=== PATIENT | female | born 1970 | race Caucasian/White ===

== ENCOUNTER 2016-11-01 16:29 | Emergency (ER) | payer OTHER ==
[~2016-11-01] VITALS: Wt 65.9 kg
--- NOTE | 2016-11-01 18:42 | RADRPT ---
PROCEDURE: XR Sacrum and Coccyx. CLINICAL INDICATION: Trauma due to a fall 2 weeks ago. Sacrum and coccyx pain. TECHNIQUE: 3 views. AP, AP oblique, and lateral views of the sacrum and coccyx were performed. COMPARISON: No prior studies are available for comparison. FINDINGS: There is normal sacral and coccygeal mineralization and alignment. No fracture or subluxation is see n. The sacroiliac joints appear normal. The soft tissues are unremarkable. IMPRESSION: 1. Unremarkable images of the sacrum and coccyx. RPTAT: QQ .Byron Diego MD, MD Date Time Electronically viewed and signed by .Byron Diego MD, on 11/01/2016 18:41 .R/
[2016-11-01] MEDS ORDERED: DOCU-144 PO (19:22)
[2016-11-01] MEDS ORDERED: IBUP-1542 PO (19:22)
[2016-11-01] MEDS ORDERED: HYDR-906 PO (19:22)
--- NOTE | 2016-11-01 20:04 | ERD ---
ER Documentation Chief Complaint Date/Time DATE: 11/01/16 TIME: 20:01 Chief Complaint rectal pain while sitting and walking, no pain w bm HPI Patient is a 46-year-old female she fell 2 weeks ago she fell out of the chair and landed on her tailbone area. Apparently she developed more pain in the past 1 week. She had a history of hemorrhoidectomy 3 years ago. No fevers no chills no other complaints. No bowel or bladder incontinence no saddle anesthesia no radiation of the pain down the leg. Pain is localized in the tailbone area it is aching it is mild to moderate. ROS All systems reviewed and are negative except as per history of present illness. Medications Home Meds Active Scripts Ibuprofen* (Motrin*) 600 Mg Tab, 600 MG PO Q8, #15 TAB Prov:EMILIANA GAYTAN DO 11/01/16 Hydrocodone/Acetaminophen ([place] 5-325 Tablet) 1 Each Tablet, 1 TAB PO Q6H Y for PAIN, #12 TAB Prov:EMILIANA GAYTAN DO 11/01/16 Docusate Sodium* (Colace*) 100 Mg Capsule, 100 MG PO TID, #30 CAP Prov:EMILIANA GAYTAN DO 11/01/16 Allergies Allergies: Coded Allergies: No Known Allergy (Unverified , 11/01/16) PMhx/Soc Medical and Surgical Hx: pt denies Medical Hx, pt denies Surgical Hx Hx Alcohol Use: No Hx Tobacco Use: No Smoking Status: Never smoker Physical Exam Vitals Vital Signs Date Time Temp Pulse Resp B/P Pulse Ox O2 Delivery O2 Flow Rate FiO2 11/01/16 16:39 98.5 86 20 121/77 100 Physical Exam Const: [] Head: Atraumatic Eyes: Normal Conjunctiva ENT: Normal External Ears, Nose and Mouth. Neck: Full range of motion..~ No meningismus. Resp: Clear to auscultation bilaterally Cardio: Regular rate and rhythm, no murmurs Abd: Soft, non tender, non distended. Normal bowel sounds Skin: No petechiae or rashes Back: No midline or flank tenderness. In the sacral coccygeal area she has moderate localized tenderness to palpation, she has a small external hemorrhoid nonthrombosed. Ext: No cyanosis, or edema Neur: Awake and alert Psych: Normal Mood and Affect Results 24 hrs [facility] [address] [address] Radiology Main Line: [phone] DIAGNOSTIC IMAGING REPORT Patient: DANYELLE TRAMMELL : 1970 Age: 46 Sex: F MR #: [id number] DOS: 11/01/16 0000 Ordering MD: EMILIANA GAYTAN DO Location: [facility] Room/Bed: PROCEDURE: XR Sacrum and Coccyx. CLINICAL INDICATION: Trauma due to a fall 2 weeks ago. Sacrum and coccyx pain. TECHNIQUE: 3 views. AP, AP oblique, and lateral views of the sacrum and coccyx were performed. COMPARISON: No prior studies are available for comparison. FINDINGS: There is normal sacral and coccygeal mineralization and alignment. No fracture or subluxation is seen. The sacroiliac joints appear normal. The soft tissues are unremarkable. IMPRESSION: 1. Unremarkable images of the sacrum and coccyx. RPTAT: QQ .Byron Diego MD, MD Date Time Electronically viewed and signed by .Byron Diego MD, MD on 11/01/2016 18:41 .R/ CC: EMILIANA GAYTAN DO Procedures/MDM X-ray of the coccyx and sacrum shows no fracture so this is likely a sacral or coccygeal contusion. He also has an external hemorrhoid. Give her pain medications stool softeners. I doubt cauda equina discitis osteomyelitis broken tailbone broken coccygeal and lower herniated disc. Vital signs are stable she is well-appearing she stable for discharge and outpatient follow-up. Departure Diagnosis: Primary Impression: Coccyx pain Additional Impression: External hemorrhoid Condition: Stable Patient Instructions: Contusion, Coccyx/Sacrum EMILIANA GAYTAN DO Nov 01, 2016 20:04
== END 2016-11-01 19:29 | disposition home or self-care (01) ==
LOC: FTE 16:29
DX: S39.92XA Unspecified injury of lower back, initial encounter (principal); K64.4 Residual hemorrhoidal skin tags; W07.XXXA Fall from chair, initial encounter; Y92.9 Unspecified place or not applicable
CPT/HCPCS: 72220

== ENCOUNTER 2017-03-24 19:44 | Emergency (ER) | payer OTHER ==
[~2017-03-24] VITALS: Ht 160 cm; Wt 71.0 kg
[~2017-03-24 19:44] MED LIST: DOCU-144 PO; HYDR-906 PO; IBUP-1542 PO
[2017-03-24 19:55] VITALS: Ht 160 cm; Wt 71.0 kg
[2017-03-24] MEDS ORDERED: DIPHENHYDRAMINE 50 MG INJ IM ONE (21:30)
[2017-03-24] MEDS ORDERED: predniSONE 50 MG TAB PO ONE (21:30)
[2017-03-24] MEDS ORDERED: PRED50TA PO (21:45)
[2017-03-24] MEDS ORDERED: BEN50 PO (21:45)
--- NOTE | 2017-03-24 21:45 | ERD ---
ER Documentation Chief Complaint Date/Time DATE: 03/24/17 TIME: 21:42 Chief Complaint swelling on both cheeks today HPI 47-year-old female presents to emergency department for complaints of redness and mild swelling and bilateral cheek area after eating something spicy and different yesterday. Patient denies applying something new or different in the facial area. Patient denies any lip swelling, tongue swelling or stridor. Patient does not have any shortness breath or wheezing. Patient did not take any medications to help with symptoms. Patient denies any family members with and the same type of rash. Patient denies any exposure to the sun. Patient taking any new medications. ROS All systems reviewed and are negative except as per history of present illness. Medications Home Meds Active Scripts Ibuprofen* (Motrin*) 600 Mg Tab, 600 MG PO Q8, #15 TAB Prov:EMILIANA GAYTAN DO 11/01/16 Hydrocodone/Acetaminophen ([place] 5-325 Tablet) 1 Each Tablet, 1 TAB PO Q6H Y for PAIN, #12 TAB Prov:LUKASEMILIANA DO 11/01/16 Docusate Sodium* (Colace*) 100 Mg Capsule, 100 MG PO TID, #30 CAP Prov:EMILIANA GAYTAN DO 11/01/16 Allergies Allergies: Coded Allergies: No Known Allergy (Unverified , 11/01/16) PMhx/Soc Medical and Surgical Hx: pt denies Medical Hx, pt denies Surgical Hx Hx Alcohol Use: No Hx Tobacco Use: No FmHx Family History: No coronary disease, No diabetes, No other Physical Exam Vitals Vital Signs Date Time Temp Pulse Resp B/P Pulse Ox O2 Delivery O2 Flow Rate FiO2 03/24/17 19:55 98.3 72 20 148/64 98 Physical Exam GENERAL: The patient is well developed and appropriate for usual state of health, in no apparent distress. CHEST: Clear to auscultation bilaterally. There are no rales, wheezes or rhonchi. HEART: Regular rate and rhythm. No murmurs, clicks, rubs or gallops. No S3 or S4. ABDOMEN: Soft, nontender and nondistended. Good bowel sounds. No rebound or guarding. No gross peritonitis. No gross organomegaly or masses. No Kim sign or McBurney point tenderness. BACK: No midline or flank tenderness. EXTREMITIES: Equal pulses bilaterally. There is no peripheral clubbing, cyanosis or edema. No focal swelling or erythema. Full range of motion. Grossly neurovascularly intact. NEURO: Alert and oriented. Cranial nerves 2-12 intact. Motor strength in all 4 extremities with 5/5 strength. Sensation grossly intact. Normal speech and gait. SKIN: There is redness and bilateral cheek area, macular rash noted. There is no apparent ecchymosis or petechia. The skin is warm and dry. HEMATOLOGIC AND LYMPHATIC: There is no evidence of excessive bruising or lymphedema. No gross cervical, axillary, or inguinal lymphadenopathy. Results 24 hrs Current Medications Medications (Trade) Dose Ordered Sig/Eliud Route PRN Reason Start Time Stop Time Status Last Admin Dose Admin Diphenhydramine HCl (Benadryl) 50 mg ONCE ONCE IM 03/24/17 21:30 03/24/17 21:31 DC Prednisone (Prednisone) 50 mg ONCE ONCE PO 03/24/17 21:30 03/24/17 21:35 DC Prednisone (Prednisone) 40 mg ONCE ONCE PO 03/24/17 22:00 03/24/17 22:01 Benadryl and prednisone was given here in emergency department, prednisone 40 mg is given here in emergency department. Tolerated medication well. Procedures/MDM Medical decision making: Patient's symptoms most likely consistent with dermatitis, possible allergic, can be atopic or possible sun exposure. At this time, no symptoms of any sepsis at this time, no symptoms of any anaphylactic shock. No symptoms of any contagious rash. No angioedema noted. Patient was given for Benadryl, prednisone, is advised to follow-up with primary care doctor in 2-3 days, possibly see a medical staffing coordinator specialist, return to emergency department for any worsening symptoms. Departure Diagnosis: Primary Impression: Rash Condition: Stable Patient Instructions: Dermatitis, Non-Specific VIKI BANKS NP Mar 24, 2017 21:45
[2017-03-24 21:53] VITALS: BP 140/75; PULSE 61; RESP 20; TEMP 98.5
[2017-03-24] MEDS ORDERED: predniSONE 20 MG TAB PO ONE (22:00)
== END 2017-03-24 21:58 | disposition home or self-care (01) ==
LOC: FTE 19:44
DX: R21 Rash and other nonspecific skin eruption (principal)
CPT/HCPCS: 96372; J1200; J7512; Z7502

== ENCOUNTER 2017-05-07 08:13 | Day surgery (SDC) | payer OTHER ==
[~2017-05-07] VITALS: Ht 149.9 cm; Wt 71.0 kg
[~2017-05-07 08:13] MED LIST changes: +BEN50 PO; +PRED50TA PO
[2017-05-07 09:05] VITALS: Ht 149.9 cm; Wt 71.0 kg
[2017-05-07] MEDS ORDERED: LEVO50TA71 PO (09:12)
[2017-05-07 09:40] VITALS: BP 122/74; PULSE 55; RESP 20
[2017-05-07 11:02] VITALS: BP 95/65; PULSE 54; RESP 14
[2017-05-07] MEDS ORDERED: FENTAnyl 50 MCG/ML VIAL ONE (11:02)
[2017-05-07] MEDS ORDERED: MIDAZOLAM 1 MG/ML 2 ML INJ ONE ×3 (11:02)
--- NOTE | 2017-05-11 04:53 | GILP ---
DATE OF PROCEDURE: 05/07/2017 PROCEDURE PERFORMED: 1. Esophagogastroduodenoscopy and biopsy. 2. Colonoscopy and biopsy. SURGEON: Jessica Giraldo MD PREOPERATIVE DIAGNOSES: 1. Abdominal pain. 2. Chronic heartburn. 3. Rectal bleeding. POSTOPERATIVE DIAGNOSES: 1. Gastroesophageal reflux disease. 2. Gastritis with erosions. 3. Gastric mucosal biopsies were taken for H. pylori test. 4. Colonoscopy all the way to the cecum. 5. Two small sigmoid colon polyps were removed using the biopsy forceps. 6. Internal hemorrhoids. INDICATION: Ms. Shanelle Law is a 47-year-old female patient who had upper abdominal pain and chronic heartburn not responding to therapy. She also had rectal bleeding. The procedures and possible complications were well explained to the patient. She understood and consented to the procedures. DESCRIPTION OF PROCEDURE: Under influence of fentanyl and Versed, the gastroscope was carefully introduced into the esophagus. Under direct vision, it was advanced to the stomach into the pylorus into the duodenal bulb and descending duodenum. Findings in the esophagus, the patient had gastroesophageal reflux disease, she had gastritis with erosions. Gastric mucosal biopsies were taken for H. pylori test. Duodenum was normal. The colonoscope was carefully introduced in the rectum and under direct vision it was advanced all the way to the cecum. Findings: The patient had 2 small sigmoid colon polyps and they were removed using the biopsy forceps. The patient was noted to have internal hemorrhoids. She tolerated the procedures very well. There was no complication from the procedures. At the end of procedure, she was awake, with stable vital signs and she was discharged home in care of her family. IMPRESSION: Please see postop diagnoses. PLAN: 1. Omeprazole 40 mg p.o. q.a.m. 2. Anusol HC 2.5 percent cream nightly. 3. Await histopathology reports. 4. Next screening colonoscopy in 10 years. Dictated By: MD SHIRIN Richardson/dalia/edmond /Document#: [id number]
== END 2017-05-07 17:20 | disposition home or self-care (01) ==
LOC: GIL 08:13
PROVIDERS: ATTEND Internal Medicine Gastroenterology
DX: D12.5 Benign neoplasm of sigmoid colon (principal); K29.60 Other gastritis without bleeding; K21.9 Gastro-esophageal reflux disease without esophagitis; K64.8 Other hemorrhoids
CPT/HCPCS: 43239; 45380; 84703; 87081; 88305; J2250; J3010; Z7610

== ENCOUNTER 2017-05-22 17:28 | Emergency (ER) | payer OTHER ==
[~2017-05-22] VITALS: Wt 71.5 kg
[~2017-05-22 17:28] MED LIST changes: -BEN50 PO; -DOCU-144 PO; -HYDR-906 PO; -IBUP-1542 PO; +LEVO50TA71 PO; -PRED50TA PO
[2017-05-22] MEDS ORDERED: BEN25 PO (18:44)
[2017-05-22] MEDS ORDERED: PRED20TA PO (18:44)
[2017-05-22] MEDS ORDERED: predniSONE 20 MG TAB PO ONE (19:00)
[2017-05-22] MEDS ORDERED: DIPHENHYDRAMINE 50 MG CAP PO ONE (19:00)
--- NOTE | 2017-05-22 19:20 | ERD ---
ER Documentation Chief Complaint Date/Time DATE: 05/22/17 TIME: 19:16 Chief Complaint GENERALIZED RASH FOR THE PAST 2 DAYS. NO SOB. NO STRIDOR HPI This is a 47-year-old female presenting to the emergency department for generalized rash for the past 2 days. Patient states she ate fish yesterday and 6 hours after developed generalized pruritic rash. Patient has pruritus mainly to abdomen back neck and face. No difficulty breathing or shortness of breath. No wheezing. No fevers or chills. Patient has been using aloe cream without relief of symptoms. Patient has had reaction like this before. ROS All systems reviewed and are negative except as per history of present illness. Medications Home Meds Active Scripts Diphenhydramine Hcl* (Benadryl*) 25 Mg Cap, 25 MG PO Q6, #15 CAP Prov:BRANDON OSPINA NP 05/22/17 Prednisone* (Prednisone*) 20 Mg Tab, 40 MG PO DAILY for 4 Days, TAB Prov:BRANDON OSPINA NP 05/22/17 Reported Medications Levothyroxine Sodium* (Levoxyl*) 50 Mcg Tablet, 50 MCG PO BEFORE BREAKFAST, #30 TAB 05/07/17 Allergies Allergies: Coded Allergies: No Known Allergy (Unverified , 05/22/17) PMhx/Soc Medical and Surgical Hx: pt denies Medical Hx History of Surgery: Yes (HEMORHOIDS) Anesthesia Reaction: No Hx Neurological Disorder: No Hx Respiratory Disorders: No Hx Cardiac Disorders: No Hx Psychiatric Problems: No Hx Miscellaneous Medical Probl: No Hx Alcohol Use: No Hx Substance Use: No Hx Tobacco Use: No Smoking Status: Never smoker Physical Exam Vitals Vital Signs Date Time Temp Pulse Resp B/P Pulse Ox O2 Delivery O2 Flow Rate FiO2 05/22/17 17:32 98.8 69 20 111/59 98 Physical Exam Const: No acute distress, alert Head: Atraumatic Eyes: Normal Conjunctiva ENT: Normal External Ears, Nose and Mouth. Neck: Full range of motion..~ No meningismus. Resp: Clear to auscultation bilaterally Cardio: Regular rate and rhythm, no murmurs Abd: Soft, non tender, non distended. Normal bowel sounds Skin: Generalized maculopapular erythematous rash over abdomen, back, neck and face. No palpable lesions. No abscess. No drainage or weeping. Back: No midline or flank tenderness Ext: No cyanosis, or edema Neur: Awake and alert Psych: Normal Mood and Affect Results 24 hrs Current Medications Medications (Trade) Dose Ordered Sig/Eliud Route PRN Reason Start Time Stop Time Status Last Admin Dose Admin Prednisone (Prednisone) 60 mg ONCE ONCE PO 05/22/17 19:00 05/22/17 19:01 DC 05/22/17 18:47 Diphenhydramine HCl (Benadryl) 50 mg ONCE ONCE PO 05/22/17 19:00 05/22/17 19:01 DC 05/22/17 18:47 Procedures/MDM This is a 47-year-old female presenting to the emergency department with rash x 2 days. Patient ate fish yesterday and developed rash 6 hours after. Rash is generalized erythematous and pruritic to abdomen, back, neck and face. No angioedema. No signs or symptoms of respiratory distress. Oxygen saturation 98 % on room air. No fevers or chills. Breathing without difficulty. Patient given prednisone 60 mg and Benadryl 50 mg p.o. Differential diagnosis includes but not limited to contact dermatitis, allergic dermatitis, eczema, scabies and fungal infection. Low suspicion for acute bacterial infection or abscess. Patient is appropriate for outpatient management and will be given prescription for prednisone and Benadryl. Instructed patient to follow-up with primary care provider for reassessment and additional management. May need referral to plastic parts designer. Resources provided. Return to ED for any high fever, chest pain, difficulty breathing, shortness breath, wheezing, vomiting, diarrhea, abdominal pain or any new or worsening symptoms. Patient verbalizes understanding. All questions answered at discharge. Albanian translation used during this encounter. Departure Diagnosis: Primary Impression: Rash Condition: Stable Patient Instructions: Self-Care for Skin Rashes, Allergic Reaction, Other ( General) Referrals: SARA WITT MD (PCP) Additional Instructions: Llame a [place] mdico de atencin primaria maana para hacer tatyana kunal john los pr ximos 2-3 garcia. Linda a un mdico cuanto antes o volver aqu si [place] condicin empeora antes de [place] kunal. Regresar a ED por fiebre shant, dolor en el pecho, dificultad para respirar, respiracin entrecortada, sibilancias, vmitos, diarrea, dolor abdominal o cualquier sntoma nuevo o que empeora. BRANDON OSPINA NP May 22, 2017 19:20
== END 2017-05-22 19:01 | disposition home or self-care (01) ==
LOC: FTE 17:28
DX: R21 Rash and other nonspecific skin eruption (principal)
CPT/HCPCS: J7512; Z7502; Z7610; 99283

== ENCOUNTER 2017-05-28 21:41 | Emergency (ER) | payer OTHER ==
[~2017-05-28] VITALS: Ht 162.6 cm; Wt 72.0 kg
[~2017-05-28 21:41] MED LIST changes: +BEN25 PO; +PRED20TA PO
[2017-05-28 21:47] VITALS: Ht 162.6 cm; Wt 72.0 kg
[2017-05-28] MEDS ORDERED: morphine 10 MG INJ IM ONE (23:00)
[2017-05-29] MEDS ORDERED: NAPR-688 PO (00:17)
--- NOTE | 2017-05-29 00:31 | ERD ---
ER Documentation Chief Complaint Date/Time DATE: 05/29/17 TIME: 00:23 Chief Complaint both knee pain x 2 months, denies injury HPI This 39-year-old female comes in for pain in both knees for 2 months. Is worse when she walks or puts weight on them. She still fully ambulatory. She had no trauma to either knee. Also has a sensation of her feet being cold. ROS All systems reviewed and are negative except as per history of present illness. Medications Home Meds Active Scripts Naproxen* (Naproxen*) 500 Mg Tablet, 500 MG PO BID Y for PAIN, #20 TAB Prov:TRUONG DALAL 05/29/17 Diphenhydramine Hcl* (Benadryl*) 25 Mg Cap, 25 MG PO Q6, #15 CAP Prov:BRANDON OSPINA NP 05/22/17 Prednisone* (Prednisone*) 20 Mg Tab, 40 MG PO DAILY for 4 Days, TAB Prov:BRANDON OSPINA NP 05/22/17 Reported Medications Levothyroxine Sodium* (Levoxyl*) 50 Mcg Tablet, 50 MCG PO BEFORE BREAKFAST, #30 TAB 05/07/17 Allergies Allergies: Coded Allergies: No Known Allergy (Unverified , 05/22/17) PMhx/Soc History of Surgery: Yes (HEMORHOIDS, tubal ligation) Anesthesia Reaction: No Hx Neurological Disorder: No Hx Respiratory Disorders: No Hx Cardiac Disorders: No Hx Psychiatric Problems: No Hx Miscellaneous Medical Probl: Yes (hypothyroidism) Hx Alcohol Use: No Hx Substance Use: No Hx Tobacco Use: No Smoking Status: Never smoker Physical Exam Vitals Vital Signs Date Time Temp Pulse Resp B/P Pulse Ox O2 Delivery O2 Flow Rate FiO2 05/28/17 21:47 98.2 77 20 125/77 100 Physical Exam Const: [] No distress Head: Atraumatic ENT: Normal External Ears, Nose and Mouth. Skin: No petechiae or rashes Back: No midline or flank tenderness Ext: No cyanosis, or edema, completely normal appearance of knees with no specific tenderness to palpation, feet with normal appearance, no ankle tenderness, distal pulses intact. Good capillary refill Neur: Awake and alert Results 24 hrs Laboratory Tests Test 05/28/17 22:42 Bedside Glucose 114mg/dL Current Medications Medications (Trade) Dose Ordered Sig/Eliud Route PRN Reason Start Time Stop Time Status Last Admin Dose Admin Morphine Sulfate (morphine) 4 mg ONCE ONCE IM 05/28/17 23:00 05/28/17 23:01 DC 05/28/17 22:45 Procedures/MDM Nontraumatic knee pain for 2 months. Also feeling of cold sensation in her feet. Patient had not seen a doctor recently and was unsure if she might have diabetes when I asked about possible neuropathy.. Accu-Chek is within normal limits. She was given morphine 4 mg IM which helped with her pain peer bilateral knee x-rays read by myself are completely normal. Advising her to follow-up with a primary care doctor in 2-3 days and obtain follow-up for an orthopedist if the pain continues. I discharge her with naproxen 500 mg tabs. Bilateral knee x-ray interpretation: See no acute process. I see no fracture dislocation or any chronic process. I see no degenerative joint disease. No soft tissue abnormalities. Departure Diagnosis: Primary Impression: Knee pain Condition: Stable Patient Instructions: Knee Pain, Uncertain Cause Referrals: SARA WITT MD (PCP) Additional Instructions: Llame al doctor MAANA y saw tatyana ANGEL PARA DENTRO DE 2-3 RESENDIZ. Consique un referral para un ORTHOPEDO de [place] doctor si sigue el dolor. Dgale a la secretaria que nosotros le instruimos hacer esta angel.Avise o llame si [place] condicin se empeora antes de la angel. Regresa aqui si peor o no mejor. TRUONG DALAL DO May 29, 2017 00:31
--- NOTE | 2017-05-29 00:35 | RADRPT ---
PROCEDURE: XR bilateral knees. CLINICAL INDICATION: 42-year-old female. Knee pain increasing over 2 months. TECHNIQUE: Six views of the bilateral knees. COMPARISON: None available FINDINGS: Right knee: There is no acute fracture or dislocation. The joint spaces are preserved. No joint e ffusion is identified. Negative for significant soft tissue swelling. Left knee: There is no acute fracture or dislocation. The joint spaces are preserved. No joint ef fusion is identified.Negative for significant soft tissue swelling. IMPRESSION: Unremarkable x-ray of bilateral knees. Negative for evidence of arthritis. Cause for knee pain is not evident. RPTAT: HCTS Physician Agustín Date Time Electronically viewed and signed by Physician Agustín on 05/29/2017 00:35 /
== END 2017-05-29 00:27 | disposition home or self-care (01) ==
LOC: FTE 21:41
DX: M25.562 Pain in left knee (principal); M25.561 Pain in right knee; E03.9 Hypothyroidism, unspecified
CPT/HCPCS: 73562; 82962; 96372; J2270; Z7502

== ENCOUNTER 2017-12-08 18:55 | Emergency (ER) | END 2017-12-08 21:10 | disposition home or self-care (01) ==

== ENCOUNTER 2017-12-23 12:19 | Emergency (ER) | END 2017-12-23 20:42 | disposition home or self-care (01) ==

== ENCOUNTER 2018-07-30 15:25 | Emergency (ER) | END 2018-07-30 18:05 | disposition home or self-care (01) ==